=== PATIENT | female | born 2000 | race Hispanic/Latino ===

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

== ENCOUNTER 2022-09-01 01:45 | Emergency (ER) | payer MEDICAID, OTHER ==
[~2022-09-01] VITALS: Ht 154.9 cm; Wt 52.6 kg
[2022-09-01] MEDS ORDERED: ONDANSETRON 4MG INJ ONE (02:07)
[2022-09-01] MEDS ORDERED: KETOROLAC 15MG/ML VIAL (15MG/ML) ONE (02:07)
[2022-09-01 02:12] LABS: BASOPHILS % (AUTO) 0.3 % (0.0-5.0); HEMATOCRIT 37.2 % (36-48); LYMPHOCYTES % (AUTO) 29.6 % (21.0-51.0); MEAN CORPUSCULAR HEMOGLOBIN 23.2 pg (27.0-33.0); MEAN CORPUSCULAR HGB CONC 30.4 g/dL (32.0-36.0); MEAN CORPUSCULAR VOLUME 76.4 fL (80-100); MONOCYTES % (AUTO) 10.9 % (3.0-13.0); NEUTROPHILS % (AUTO) 58.1 % (40.0-77.0); PLATELET COUNT (AUTO) 239 K/uL (130-400); RED BLOOD CELL COUNT(AUTO) 4.87 MIL/uL (4.00-5.50); RED CELL DISTRIBUTION WIDTH 15.4 % (11.0-15.5); WHITE BLOOD COUNT (AUTO) 6.7 K/uL (4.8-10.8)
[2022-09-01 02:21] LABS: CREATININE 0.5 mg/dL (0.5-1.5); POTASSIUM 3.6 mmol/L (3.5-5.1)
[2022-09-01] MEDS ORDERED: ONDANSETRON 4MG INJ IVP ONE (02:30)
[2022-09-01] MEDS ORDERED: KETOROLAC 15MG/ML VIAL (15MG/ML) IV ONE (02:30)
[2022-09-01 02:31] LABS: ALBUMIN 4.3 g/dL (3.5-5.0); TOTAL PROTEIN, SERUM 7.6 g/dL (6.0-8.3)
[2022-09-01] MEDS ORDERED: LACT10SO9 PO (04:56)
[2022-09-01 05:06] VITALS: BP 118/56
== END 2022-09-01 05:14 | disposition home or self-care (01) ==
LOC: EDH 01:45
DX: K56.41 Fecal impaction (principal); R10.2 Pelvic and perineal pain
CPT/HCPCS: 99285; 74176; 96374; 96375; 80053; 84702; 83690; 85025; 86850; 86900; 86901; 87040 ×2; 36415; J2405; J1885

== ENCOUNTER 2023-08-05 12:00 | Emergency (ER) | payer MEDICAID, OTHER, SELFPAY ==
[~2023-08-05] VITALS: Ht 157.5 cm; Wt 54.4 kg
[~2023-08-05 12:00] MED LIST: LACT10SO9 PO
[2023-08-05] MEDS: 0.9%NACL 1000ML 1,000 ML IV ONE (13:23)
[2023-08-05 13:27] LABS: BASOPHILS # (AUTO) 0.02 K/uL (0.00-0.20); BASOPHILS % (AUTO) 0.3 % (0.0-5.0); EOSINOPHILS # (AUTO) 0.05 K/uL (0.00-0.70); EOSINOPHILS % (AUTO) 0.6 % (0.0-8.0); HEMATOCRIT 41.8 % (36-48); IMMATURE GRANULOCYTE ABSOLUTE 0.03 K/uL (0-1); LYMPHOCYTES # (AUTO) 1.7 K/uL (1.0-4.8); MEAN CORPUSCULAR HEMOGLOBIN 26.4 pg (27.0-33.0); MEAN CORPUSCULAR HGB CONC 31.8 g/dL (32.0-36.0); MEAN CORPUSCULAR VOLUME 82.9 fL (80-100); MONOCYTES # (AUTO) 0.8 K/uL (0.1-1.0); MONOCYTES % (AUTO) 10.1 % (3.0-13.0); NEUTROPHILS # (AUTO) 5.4 K/uL (1.8-7.7); NEUTROPHILS % (AUTO) 67.6 % (40.0-77.0); PLATELET COUNT (AUTO) 230 K/uL (130-400); RED BLOOD CELL COUNT(AUTO) 5.04 MIL/uL (4.00-5.50); RED CELL DISTRIBUTION WIDTH 14.4 % (11.0-15.5); WHITE BLOOD COUNT (AUTO) 7.9 K/uL (4.8-10.8)
[2023-08-05 13:28] LABS: APPEARANCE,URINE CLEAR (CLEAR); BILIRUBIN,URINE NEGATIVE (NEGATIVE); COLOR,URINE LIGHT-YELLOW (YELLOW); GLUCOSE, URINE (UA) NEGATIVE (NEGATIVE); KETONES,URINE NEGATIVE (NEGATIVE); LEUKOCYTE ESTERASE ,URINE NEGATIVE Leu/uL (NEGATIVE); NITRATE,URINE NEGATIVE (NEGATIVE); OCCULT BLOOD,URINE NEGATIVE (NEGATIVE); PH,URINE 6.5 (5.0-8.0); PROTEIN,URINE NEGATIVE (NEGATIVE); UROBILINOGEN,URINE 0.2 mg/dL (0.2-1.0)
[2023-08-05 13:29] LABS: ADD UA MICROSCOPIC NO
[2023-08-05 13:38] LABS: CREATININE 0.5 mg/dL (0.5-1.5); POTASSIUM 3.1 mmol/L (3.5-5.1)
[2023-08-05 14:03] LABS: ALBUMIN 4.1 g/dL (3.5-5.0); BILIRUBIN,TOTAL 0.6 mg/dL (0.2-1.0); TOTAL PROTEIN, SERUM 7.9 g/dL (6.0-8.3)
[2023-08-05] MEDS ORDERED: FLUT9.9S NS (14:42)
[2023-08-05 14:52] VITALS: BP 105/54; PULSE 86; RESP 18; O2SAT 99
== END 2023-08-05 14:55 | disposition home or self-care (01) ==
LOC: EDH 12:00
DX: O26.891 Other specified pregnancy related conditions, first trimester (principal); R04.0 Epistaxis; R10.9 Unspecified abdominal pain; R04.2 Hemoptysis
CPT/HCPCS: 99284; 96360; 76801; 80053; 84702; 85025; 85378; 86900; 86901; 81003; 36415; J7030

== ENCOUNTER 2024-01-09 18:17 | Observation (INO) | payer MEDICAID ==
[~2024-01-09] VITALS: Ht 157.5 cm; Wt 59.0 kg
[~2024-01-09 18:17] MED LIST changes: +FLUT9.9S NS
[2024-01-09 18:23] VITALS: BP 120/76; PULSE 93; RESP 18
[2024-01-09 18:57] LABS: ADD UA MICROSCOPIC YES; APPEARANCE,URINE CLOUDY (CLEAR); BILIRUBIN,URINE NEGATIVE (NEGATIVE); COLOR,URINE LIGHT-YELLOW (YELLOW); GLUCOSE, URINE (UA) NEGATIVE (NEGATIVE); KETONES,URINE 60 mg/dL (NEGATIVE); LEUKOCYTE ESTERASE ,URINE 250 Leu/uL (NEGATIVE); NITRATE,URINE NEGATIVE (NEGATIVE); OCCULT BLOOD,URINE NEGATIVE (NEGATIVE); PROTEIN,URINE 10 mg/dL (NEGATIVE); UROBILINOGEN,URINE 0.2 mg/dL (0.2-1.0)
[2024-01-09 19:02] LABS: BACTERIA,URINE RARE /HPF (None Seen); MUCUS,URINE RARE LPF (None Seen); SQUAMOUS EPITHELIAL CELL,UR FEW /HPF (0-2)
[2024-01-09] MEDS: PANTOPRAZOLE 40 MG/VIAL IVP ONE (20:24)
[2024-01-09] MEDS: LACTATED RINGERS 1000ML IV SCH (20:24)
[2024-01-09] MEDS ORDERED: LACTATED RINGERS 1000ML 1,000 ML IV SCH (22:00)
== END 2024-01-09 23:25 | disposition home or self-care (01) ==
LOC: EDH 18:17 → LDH 18:46
PROVIDERS: ADMIT Obstetrics & Gynecology; ATTEND Obstetrics & Gynecology
DX: O21.2 Late vomiting of pregnancy (principal); O26.892 Other specified pregnancy related conditions, second trimester; K92.1 Melena; R10.9 Unspecified abdominal pain; Z79.899 Other long term (current) drug therapy; Z3A.28 28 weeks gestation of pregnancy
CPT/HCPCS: 96374; 96361 ×2; 96372; 87086; 81001; G0378 ×4; G0379; J7120 ×3; J3105; J2470; 96360

== ENCOUNTER 2024-02-12 10:30 | Observation (INO) | payer MEDICAID ==
[~2024-02-12] VITALS: Ht 157.5 cm; Wt 63.5 kg
[2024-02-12 10:35] VITALS: BP 112/66; PULSE 120; RESP 20; TEMP 98.4
[2024-02-12 11:25] LABS: APPEARANCE,URINE CLOUDY (CLEAR); BILIRUBIN,URINE NEGATIVE (NEGATIVE); COLOR,URINE YELLOW (YELLOW); GLUCOSE, URINE (UA) 100 mg/dL (NEGATIVE); KETONES,URINE 5 mg/dL (NEGATIVE); LEUKOCYTE ESTERASE ,URINE MODERATE Leu/uL (NEGATIVE); NITRATE,URINE POSITIVE (NEGATIVE); OCCULT BLOOD,URINE NEGATIVE (NEGATIVE); PROTEIN,URINE NEGATIVE (NEGATIVE); UROBILINOGEN,URINE 0.2 mg/dL (0.2-1.0)
[2024-02-12 11:26] LABS: ADD UA MICROSCOPIC YES
[2024-02-12 11:33] LABS: RBC,URINE 0-1 /HPF (0-1)
[2024-02-12 11:34] LABS: BACTERIA,URINE Moderate /HPF (None Seen)
== END 2024-02-12 12:25 | disposition home or self-care (01) ==
LOC: EDH 10:30 → LDH 10:31
PROVIDERS: ADMIT Obstetrics & Gynecology; ATTEND Obstetrics & Gynecology
DX: O26.853 Spotting complicating pregnancy, third trimester (principal); Z3A.32 32 weeks gestation of pregnancy; Z79.899 Other long term (current) drug therapy
CPT/HCPCS: 87086; 81001; 76805 ×2; G0378 ×2; G0379

== ENCOUNTER 2024-07-04 20:23 | Emergency (ER) | payer MEDICAID ==
[~2024-07-04] VITALS: Ht 157.5 cm; Wt 59.0 kg
--- NOTE | 2024-07-04 20:27 | NUR ---
UA CUP PROVIDED
--- NOTE | 2024-07-04 20:46 | ERN ---
ED Note History of Present Illness Stated Complaint: MULTIPLE COMPLAINTS Chief Complaint: Painful Urination Time Seen by MD: 20:31 Dictation: PATIENT IS A 23-YEAR-OLD FEMALE COMING IN TODAY WITH HAVING PAINFUL URINATION FOR THE LAST 2-3 DAYS WITHOUT FEVER CHILLS NAUSEA VOMITING. SHE SAID SHE STATES HER BOYFRIEND HAS BEEN CHEATING ON HER WITH OTHER FEMALES AND WANTED TO BE CHECKED OUT. Allergies: Coded Allergies: No Known Drug Allergies (Verified Allergy, Unknown, 01/09/24) Home Meds No Active Prescriptions or Reported Meds Past Medical History Past Medical History: No Pertinent History Surgical History: None Social History: Negative, Lives with family : 1 Para: 1 Aborts: 0 RN Note Reviewed/Agreed w/PFSH: Yes Review of System Dictation CONSTITUTIONAL: NEGATIVE EXCEPT FOR HPI HEAD/FACE: NEGATIVE EXCEPT FOR HPI EENT: NEGATIVE EXCEPT FOR HPI RESPIRATORY: NEGATIVE EXCEPT FOR HPI GASTROINTESTINAL/ABDOMINAL: NEGATIVE EXCEPT FOR HPI GENITOURINARY: NEGATIVE EXCEPT FOR HPI DYSURIA MUSCULOSKELETAL: NEGATIVE EXCEPT FOR HPI INTEGUMENTARY: NEGATIVE EXCEPT FOR HPI NEUROLOGICAL/PSYCH: NEGATIVE EXCEPT FOR HPI HEMATOLOGIC/LYMPHATIC: NEGATIVE EXCEPT FOR HPI ALL SYSTEMS NEGATIVE, EXCEPT NOTED ABOVE. 13 POINT REVIEW OF SYSTEMS ASSESSED AND ALL NEGATIVE EXCEPT FOR ABOVE. Initial Vital Sign VS Vital Signs Date Time Temp Pulse Resp B/P (MAP) Pulse Ox O2 Delivery O2 Flow Rate FiO2 07/04/24 20:24 97.5 88 18 126/74 100 Room Air 07/04/24 20:40 0 21 Physical Exam Dictation VITAL SIGNS REVIEWED GENERAL APPEARANCE: ALERT, ORIENTED X 3, NO ACUTE DISTRESS, WELL DEVELOPED, NOURISHED. HEAD AND FACE: NON-TRAUMATIC. EYES: PERRL, PINK CONJUNCTIVAS, EYELID NO TRAUMA, ANTERIOR CHAMBER WITH ARCUS SENILIS. EARS: PINNAS INTACT AND NO SIGNS OF TRAUMA OR ERYTHEMA EAR CANALS CLEAR AND NO DISCHARGE TM NO ERYTHEMA NOSE: NO DISCHARGE, NO BLEEDING. OROPHARYNX: MOUTH NORMAL, TONGUE PINK, PHARYNX CLEAR,NO ERYTHEMA, TONSILS NO EXUDATES, NO ABSCESSES NOTED, MUCOUS MEMBRANE MOIST NECK: SUPPLE, NON-TENDER, NO THYROMEGALY, NO MASSES, NO JVD, NO BRUITS BREAST:DEFERRED CHEST:NO TENDERNESS, NO CREPITUS, NO PARADOXICAL MOVEMENT, NO RETRACTIONS LUNGS:CLEAR, WELL-VENTILATED, SYMMETRIC, NO RALES, NO WHEEZING, NO RHONCHI, NO STRIDOR, GOOD BREATH SOUNDS BILATERALLY HEART: REGULAR RATE, REGULAR RHYTHM, NO MURMUR, NO GALLOPS VASCULAR: NO PERIPHERAL EDEMA, ABDOMEN: SOFT, POSITIVE BOWEL SOUNDS, NONDISTENDED, NO GUARDING, NONTENDER, NO REBOUND, NO MASSES NO HEPATOMEGALY, NO SPLENOMEGALY, NO BECERRIL'S SIGN, NO HERNIAS. RECTAL: DEFERRED GENITAL: DEFERRED NEUROLOGICAL: NORMAL SPEECH, MOTOR FUNCTION INTACT, SENSORY FUNCTION INTACT MUSCULOSKELETAL: NECK NONTENDER, FULL RANGE OF MOTION, BACK NONTENDER, FULL RANGE OF MOTION, EXTREMITIES: NONTENDER, FULL RANGE OF MOTION SKIN: COLOR PINK, DRY, NO TURGOR, NO RASH, NO LACERATIONS, NO ABRASIONS, NO CONTUSIONS. LYMPHATIC: DEFERRED Results (Laboratory/Radiology) Laboratory/Radiology Laboratory Tests Test 07/04/24 20:42 Urine Color LIGHT-YELLOW (YELLOW) Urine Appearance CLEAR (CLEAR) Urine pH 7.0 (5.0-8.0) Urine Specific [place] 1.022 (1.001-1.031) Urine Protein NEGATIVE mg/dL (NEGATIVE) Urine Glucose (UA) NEGATIVE mg/dL (NEGATIVE) Urine Ketones NEGATIVE mg/dL (NEGATIVE) Urine Occult Blood NEGATIVE (NEGATIVE) Urine Nitrate NEGATIVE (NEGATIVE) Urine Bilirubin NEGATIVE mg/dL (NEGATIVE) Urine Urobilinogen 0.2 mg/dL (0.2-1.0) Urine Leukocyte Esterase NEGATIVE Libby/uL Urine HCG, Qualitative NEGATIVE (NEGATIVE) Labs Reviewed?: Yes ED Course ED Course Orders Procedure Category Date Status Time Urinalysis Profile LAB 07/04/24 Complete 20:39 Chlamydia & Gc Pcr AMRIK 07/04/24 In Process 20:39 ,Urine Test LAB 07/04/24 Complete 20:39 Vital Signs Date Time Temp Pulse Resp B/P (MAP) Pulse Ox O2 Delivery O2 Flow Rate FiO2 07/04/24 20:40 97.9 88 18 126/74 97 Room Air* 0 21 07/04/24 20:24 97.5 88 18 126/74 100 Room Air 2140 PATIENT LEFT WITHOUT PROPER DISCHARGE. CALLED IN INTERNAL WAITING ROOM AND EXTERNAL WAITING ROOM WITHOUT ANSWER Medical Decision Making MDM Medical discharge making based on running a urinalysis, hCG, GC chlamydia PCR and urine Patient was made aware the results would be next week however she was advised [facility] & [facility] Disposition: Discharge Departure Impression: Primary Impression: Possible exposure to STD Additional Impression: Dysuria Condition: Stable Scripts No Active Prescriptions or Reported Meds Additional Instructions: Follow-up with primary care provider in 1 to 2 days. Take medications as d irected here in the emergency room. Okay to continue home medications unless otherwise discussed during your visit in the emergency room today. Return to your nearest emergency room if symptoms worsen or if there is no improvement. Call 911 if you need immediate assistance. Take Tylenol or Motrin [id number] as needed and if no contraindications are present. Increase oral hydration. A wound culture or urine culture was ordered here in the emergency room department please follow-up with primary care provider and advise them to get repeat ports from our facility. If you had any Adrien wrap/splints that were applied here, please do not remove them until you see your primary care or specialty. Follow up with your network security consultant doctor or [facility]. No sex of any kind until cleared by your Dr. or provider Referrals: JOVANI MICHELLE Jr., MD (PCP) Time of Disposition: 21:39 I have reviewed the case, and I agree with, Diagnosis and Plan SERGIO PERRY NP Jul 04, 2024 20:46
[2024-07-04 21:22] LABS: APPEARANCE,URINE CLEAR (CLEAR); BILIRUBIN,URINE NEGATIVE (NEGATIVE); COLOR,URINE LIGHT-YELLOW (YELLOW); GLUCOSE, URINE (UA) NEGATIVE (NEGATIVE); KETONES,URINE NEGATIVE (NEGATIVE); LEUKOCYTE ESTERASE ,URINE NEGATIVE Leu/uL (NEGATIVE); NITRATE,URINE NEGATIVE (NEGATIVE); OCCULT BLOOD,URINE NEGATIVE (NEGATIVE); PROTEIN,URINE NEGATIVE (NEGATIVE); UROBILINOGEN,URINE 0.2 mg/dL (0.2-1.0)
[2024-07-04 21:25] LABS: HCG,QUALITATIVE URINE NEGATIVE (NEGATIVE)
[2024-07-04 21:26] LABS: ADD UA MICROSCOPIC NO
[2024-07-04 21:50] VITALS: BP 112/72; PULSE 90; RESP 20; TEMP 98; O2SAT 98
== END 2024-07-04 22:02 | disposition home or self-care (01) ==
LOC: EDH 20:23
DX: R30.0 Dysuria (principal); Z20.2 Contact with and (suspected) exposure to infections with a predominantly sexual mode of transmission
CPT/HCPCS: 81003; 81025; 87491; 87591; 99283